=== PATIENT | male | born 1955 | race Caucasian/White ===

== ENCOUNTER 2020-07-29 13:42 | Emergency (ER) | payer MEDICARE ==
[~2020-07-29] VITALS: Ht 175.3 cm; Wt 95.4 kg
[2020-07-29 13:46] VITALS: BP 180/98
[2020-07-29] MEDS ORDERED: HYDROcodone/APAP 5/325MG 1 TAB TABLET PO ONE (14:15)
--- NOTE | 2020-07-29 14:18 | PHYS DOC ---
General Adult EDM: Chief Complaint: KNEE INJURY HPI: HPI: History obtained from patient. Patient is a 65-year-old male past medical history notable for gout, remote history of chondromalacia of the knees bilaterally who presents with chief complaint of right knee pain. Patient states 4 days prior to arrival he remembers pulling his knee while getting out of bed. He states that he has had progressive pain and swelling to the knee joint since then. He states he has been ambulate although is getting progressively more difficult. He states he is now using his brothers cane for ambulation. He notes the right knee feels somewhat warm. States he is able to fully extend his knee. States it is somewhat difficult for him to fully flex his knee. Denies any falls or direct blows to the knee. Denies ankle pain. Does note history of gout but states this is not quite as tender overlying the skin is his typical gout and he usually experiences gout in his ankles. States he does take allopurinol daily and has taken this for a year. Denies fevers. Denies vomiting. Denies IV drug use. Denies diabetes. Denies dialysis treatment. Denies history of joint placement. Denies history of septic joint. Has tried ice, heat, Motrin with some relief. States pain is aching in nature. States pain is worse over the inferior medial aspect of his right knee joint. No other complaints. Review of Systems: Review of Systems: Constitutional: Denies fever or chills Eyes: Denies change in visual acuity HENT: Denies nasal congestion or sore throat Respiratory: Denies cough or shortness of breath Cardiovascular: Denies chest pain or edema GI: Denies abdominal pain, nausea, vomiting, bloody stools or diarrhea : Denies dysuria Musculoskeletal: Positive for knee pain Integument: Denies rash Neurologic: Denies headache, focal weakness or sensory changes Endocrine: Denies polyuria or polydipsia Lymphatic: Denies swollen glands Psychiatric: Denies depression or anxiety Current Medications: Current Meds: Current Medications Medications (Trade) Dose Ordered Sig/Yolie Start Time Stop Time Status Last Admin Dose Admin Acetaminophen/ Hydrocodone Bitart (Lortab 5/325) 1 tab 1X ONCE 07/29/20 14:15 07/29/20 14:16 UNV Allergies: Allergies: Allergies Coded Allergies Type Severity Reaction Last Updated Verified No Known Drug Allergies 07/29/20 No Physical Exam: PE: Constitutional: Well developed, well nourished, no acute distress, non-toxic a ppearance. [] HENT: Normocephalic, atraumatic, bilateral external ears normal, oropharynx moist, no oral exudates, nose normal. [] Eyes: PERRLA, EOMI, conjunctiva normal, no discharge. [] Neck: Normal range of motion, no tenderness, supple, no stridor. [] Cardiovascular:Heart rate regular rhythm, no murmur [] Lungs & Thorax: Bilateral breath sounds clear to auscultation [] Abdomen: soft, no tenderness, no masses, no pulsatile masses. [] Skin: Warm, dry, no erythema, no rash. [] Back: No tenderness, no CVA tenderness. [] Extremities: R Knee: Slight erythema overlying the patella. Slight increase in warmth present.. Mild effusion not present. Anterior drawer is intact. Posterior drawer is intact. Varus testing is intact. Valgus testing is intact. Knee extension is intact. DNVI (DP pulse 2+, plantar and dorsiflexion intact, light touch intact. Limited active flexion due to discomfort. Neurologic: Alert and oriented X 3, normal motor function, normal sensory function, no focal deficits noted. [] Psychologic: Affect normal, judgement normal, mood normal. [] Current Patient Data: Labs: Laboratory Tests Test 07/29/20 14:23 White Blood Count 14.9 x10^3/uL Red Blood Count 5.11 x10^6/uL Hemoglobin 16.0 g/dL Hematocrit 48.7 % Mean Corpuscular Volume 95 fL Mean Corpuscular Hemoglobin 31 pg Mean Corpuscular Hemoglobin Concent 33 g/dL Red Cell Distribution Width 15.0 % Platelet Count 250 x10^3/uL Neutrophils (%) (Auto) 76 % Lymphocytes (%) (Auto) 16 % Monocytes (%) (Auto) 7 % Eosinophils (%) (Auto) 1 % Basophils (%) (Auto) 1 % Neutrophils # (Auto) 11.3 x10^3uL Lymphocytes # (Auto) 2.3 x10^3/uL Monocytes # (Auto) 1.1 x10^3/uL Eosinophils # (Auto) 0.1 x10^3/uL Basophils # (Auto) 0.1 x10^3/uL C-Reactive Protein 177.5 mg/L Current Medications Medications (Trade) Dose Ordered Sig/Yolie Route PRN Reason Start Time Stop Time Status Last Admin Dose Admin Acetaminophen/ Hydrocodone Bitart (Lortab 5/325) 1 tab 1X ONCE PO 07/29/20 14:15 07/29/20 14:25 DC Ibuprofen (Motrin) 600 mg 1X ONCE PO 07/29/20 15:00 07/29/20 15:01 DC 07/29/20 14:52 EKG: EKG: [] Radiology/Procedures: Radiology/Procedures: [address] [address] IMAGING REPORT Signed PATIENT: SAVITA BROWNE BACCOUNT: [id number] : 1955 LOCATION: ER AGE: 65 SEX: M EXAM STATUS: REG ER ORD. PHYSICIAN: CHAZ SHIN DO REASON: R knee pain and swelling with warmth PROCEDURE: CT LOWER EXTREMITY WO RIGHT EXAM: CT right knee without IV contrast. DATE: 07/29/2020 2:10 PM COMPARISON: No prior INDICATION: Right knee pain and swelling with warmth TECHNIQUE: CT of the right knee was performed without IV contrast. Axial, coronal and sagittal reformatted images were generated. PQRS compliance statement - One or more of the following individualized dose reduction techniques were utilized for this study: 1. Automated exposure control 2. Adjustment of the mA and/or kV according to patient size 3. Use of iterative reconstruction technique FINDINGS: Moderate right knee joint effusion. Prepatellar soft tissue swelling. Soft tissue swelling overlying the medial knee. No acute fracture or dislocation. ACL and PCL silhouette is intact. Grossly normal muscle bulk. No fatty atrophy. Amorphous calcifications along the popliteus tendon and MCL at the femoral attachment, nonspecific but may be seen with crystalline arthropathy or calcific periarthritis. IMPRESSION: 1. No acute fracture or dislocation. 2. Moderate right knee joint effusion. Given history of right knee pain, swelling and warmth, aspiration is recommended if there is clinical concern for septic joint. 3. Amorphous calcifications along the popliteus tendon and MCL, nonspecific but may be seen with crystalline arthropathy or calcific periarthritis. Electronically signed by: Wicho Bass MD (07/29/2020 2:50 PM) [facility] DICTATED AND SIGNED BY: WICHO BASS MD DATE: 07/29/20 [id number] CC: PCP,NO; CHAZ SHIN DO ~MTH0 0 Procedure Arthrocentesis The indication, was to rule-out septic arthritis of the knee, as well as to further evaluate for the cause of the patient's effusion, such as gout or pseudogout. The risks (infection, bleeding, pain, etc) and the benefits were discussed with the patient, and verbal consent was given to proceed. Appropriate landmakrs were identified. Using a sterile 18g needle, and sterile technique, I then inserted the needle in the right superior lateral knee joint space, while withdrawing on the syringe plunger. 20 mLs of serous synovial fluid was obtained. This was sent down to the lab for joint analysis, as well as for culture. A dressing was placed, and the patient tolerated the procedure well. My repeat neurovascular exam post- procedure was unchanged. Instructions were given to seek immediate care for increasing pain, increasing redness, streaking, or any other worrisome concerns. Heart Score: Risk Factors: Risk Factors: DM, Current or recent (<one month) smoker, HTN, HLP, family history of CAD, obesity. Risk Scores: Score 0 - 3: 2.5% MACE over next 6 weeks - Discharge Home Score 4 - 6: 20.3% MACE over next 6 weeks - Admit for Clinical Observation Score 7 - 10: 72.7% MACE over next 6 weeks - Early Invasive Strategies Course & Med Decision Making: Course & Med Decision Making Pertinent Labs and Imaging studies reviewed. (See chart for details) [] Patient is a very pleasant 65-year-old male who presents with chief complaint of right knee pain and swelling gradually over the past 3 to 4 days. Initial vital signs unremarkable. Exam noted above. Basic labs including plantar markers were obtained. He does have mild leukocytosis of 14,000. CRP elevated. Given the patient denies any obvious trauma or injury and coupled with my exam findings and laboratory analysis I did discuss with the patient the possibility for right knee arthrocentesis to rule out septic arthritis. He is agreeable to this. See procedure note for further details. Synovial fluid analysis not consistent with septic arthritis. Likely inflammatory in nature. Could be gout related however crystal analysis will take some time. Cultures are pending. I not feel any antibiotics are indicated. Given the patient states he does not think this is gout and has no history of gout in his knees probenecid and colchicine will be deferred. He will be discharged home with [place] for pain relief as needed. He was encouraged to use [id number] inflammatory measu res. His right knee was placed in Wallace bandage. He was able to ambulate without difficulty. Return precautions discussed and understood. Patient agreeable and stable for discharge home. Dragon Disclaimer: Dragon Disclaimer: This electronic medical record was generated, in whole or in part, using a voice recognition dictation system. Departure Departure: Impression: Primary Impression: Right knee pain Qualified Codes: M25.561 - Pain in right knee Disposition: 01 DC HOME SELF CARE/HOMELESS Condition: STABLE Referrals: PCPCRISTIAN (PCP) Patient Instructions: Knee Arthrocentesis Additional Instructions: Please follow-up with your primary care physician at your next appointment. Scripts Hydrocodone Bit/Acetaminophen (NORCO 5-325 TABLET) 1 Each Tablet 1-2 TAB PO Q4-6HRS for pain, #10 TAB Prov: CHAZ SHIN DO 07/29/20 CHAZ SHIN DO Jul 29, 2020 14:18
[2020-07-29 14:40] LABS: BASO # 0.1 x10^3/uL (0.0-0.2); BASO % 1 % (0-3); EOS # 0.1 x10^3/uL (0.0-0.7); EOS % 1 % (0-3); HEMATOCRIT 48.7 % (39.0-53.0); LYMPH # 2.3 x10^3/uL (1.0-4.8); LYMPH % 16 % (24-48); MEAN CORPUSCULAR HEMOGLOBIN 31 pg (25-35); MEAN CORPUSCULAR HGB CONC 33 g/dL (31-37); MEAN CORPUSCULAR VOLUME 95 fL (79-100); MONO # 1.1 x10^3/uL (0.0-1.1); MONO % 7 % (0-9); NEUT # 11.3 x10^3uL (1.8-7.7); NEUT % 76 % (31-73); PLATELET COUNT 250 x10^3/uL (140-400); RED BLOOD COUNT 5.11 x10^6/uL (4.30-5.70); WHITE BLOOD COUNT 14.9 x10^3/uL (4.0-11.0)
--- NOTE | 2020-07-29 14:53 | RAD ---
EXAM: CT right knee without IV contrast. DATE: 07/29/2020 2:10 PM COMPARISON: No prior INDICATION: Right knee pain and swelling with warmth TECHNIQUE: CT of the right knee was performed without IV contrast. Axial, coronal and sagittal reformatted images were generated. PQRS compliance statement - One or more of the following individualized dose reduction techniques were utilized for this study: 1. Automated exposure control 2. Adjustment of the mA and/or kV according to patient size 3. Use of iterative reconstruction technique FINDINGS: Moderate right knee joint effusion. Prepatellar soft tissue swelling. Soft tissue swelling overlying the medial knee. No acute fracture or dislocation. ACL and PCL silhouette is intact. Grossly normal muscle bulk. No fatty atrophy. Amorphous calcifications along the popliteus tendon and MCL at the femoral attachment, nonspecific but may be seen with crystalline arthropathy or calcific periarthritis. IMPRESSION: 1. No acute fracture or dislocation. 2. Moderate right knee joint effusion. Given history of right knee pain, swelling and warmth, aspiration is recommended if there is clinical concern for septic joint. 3. Amorphous calcifications along the popliteus tendon and MCL, nonspecific but may be seen with crystalline arthropathy or calcific periarthritis. Electronically signed by: Wicho Myers MD (07/29/2020 2:50 PM) [facility]
[2020-07-29] MEDS ORDERED: IBUPROFEN 600 MG TABLET. PO ONE (15:00)
[2020-07-29 16:38] LABS: BF CLARITY TURBID; BF COLOR RED; BF SOURCE SYNOVIAL
[2020-07-29 17:40] LABS: BF RBC COUNT 149000; BF WBC COUNT 7300
[2020-07-29 17:50] LABS: BF MON % 11 %; BF PMN % 89 %
[2020-07-29] MEDS ORDERED: HYDR-3165 PO (17:53)
== END 2020-07-29 18:30 | disposition home or self-care (01) ==
LOC: ER 13:42
DX: M25.561 Pain in right knee (principal); R22.41 Localized swelling, mass and lump, right lower limb; L53.8 Other specified erythematous conditions; M10.9 Gout, unspecified
CPT/HCPCS: 36415; 73700; 85025; 86140; 87071; 87075; 89050; 89060; 99284